=== PATIENT | female | born 1990 | race Caucasian/White ===

== ENCOUNTER 2022-01-11 23:30 | Emergency (ER) | payer MEDICAID ==
[~2022-01-11] VITALS: Ht 165.1 cm; Wt 104.5 kg
[2022-01-12 02:22] LABS: URINE HCG NEGATIVE (NEG)
[2022-01-12 02:25] LABS: CLARITY,URINE CLEAR (Clear); COLOR,URINE YELLOW (Yellow); GLUCOSE, URINE NEGATIVE (Neg); KETONES,URINE 15 mg/dl (Neg); LEUKOCYTE ESTERASE ,URINE NEGATIVE (Neg); NITRITES, URINE NEGATIVE (Neg); OCCULT BLOOD,URINE SMALL (Neg); PH,URINE 5.5 (4.8-8.0); PROTEIN,URINE NEGATIVE (Neg); UROBILINOGEN,URINE 0.2 E.U/dL (0.2-1.0)
[2022-01-12 02:28] LABS: UA COLLECTION TYPE CLN CATCH MIDSTREAM
[2022-01-12 02:32] LABS: BACTERIA,URINE FEW /HPF (Neg); RBC,URINE 0-2 /HPF (0-2); SQUAMOUS EPITHELIAL CELL,UR MODERATE /LPF (FEW); WBC,URINE 0-4 /HPF (0-4)
[2022-01-12] MEDS ORDERED: ketorolac trometh inj. 60 MG/2 ML VIAL IM ONE (03:35)
[2022-01-12] MEDS ORDERED: diazepam 5mg tablet PO ONE (03:35)
--- NOTE | 2022-01-12 04:08 | NUR ---
PT GIVEN PAIN MEDS FOR 9/10 PAIN. PT NOW ASLEEP.
--- NOTE | 2022-01-12 06:13 | NUR ---
TRIED TO AMBULATE PT BUT PT REFUSED. WILL FOLLOW UP. AWARE
[2022-01-12 08:02] LABS: BASOPHILS % (AUTO) 0.6 % (0-1); EOSINOPHILS # (AUTO) 0.2 X10'3 (0-0.9); EOSINOPHILS % (AUTO) 2.8 % (0-6); HEMATOCRIT 39.4 % (35.0-45.0); HEMOGLOBIN 13.1 g/dl (12.0-16.0); LYMPHOCYTES # (AUTO) 3.2 X10'3 (1.1-4.8); MEAN CORPUSCULAR HEMOGLOBIN 28.7 PG (27.0-31.0); MEAN CORPUSCULAR HGB CONC 33.2 g/dL (33.0-36.5); MEAN CORPUSCULAR VOLUME 86.6 FL (78-98); MEAN PLATELET VOLUME 8.3 FL (7.4-10.4); MONOCYTES # (AUTO) 0.5 X10'3 (0-0.9); NEUTROPHILS # (AUTO) 3.8 X10'3 (1.8-7.7); NEUTROPHILS % (AUTO) 48.6 % (42-75); PLATELET COUNT 333 X10'3 (140-440); RED BLOOD COUNT 4.55 X10'6 (4.20-5.60); RED CELL DISTRIBUTION WIDTH 13.3 % (11.5-14.5); WHITE BLOOD COUNT 7.7 X10'3 (4.5-11.0)
[2022-01-12 08:12] LABS: APTT 30 SECONDS (22-32)
[2022-01-12 08:16] LABS: ALANINE AMINOTRANSFERASE 23 U/L (12-78); ALBUMIN 3.3 G/DL (3.4-5.0); ALBUMIN/GLOBULIN RATIO 0.9 (1.1-1.5); ALKALINE PHOSPHATASE 87 IU/L (46-116); ANION GAP 5 (8-16); ASPARTATE AMINO TRANSFERASE 22 U/L (10-37); BILIRUBIN,TOTAL 0.4 MG/DL (0.1-1.0); BLOOD UREA NITROGEN 8 MG/DL (7-18); BUN/CREATININE RATIO 10.5 (6.6-38.0); CALCIUM 8.5 MG/DL (8.5-10.1); CHLORIDE 107 MMOL/L (99-107); CREATININE 0.76 MG/DL (0.40-0.90); GLUCOSE 93 MG/DL (70-104); SODIUM 138 MMOL/L (135-145); TOTAL CARBON DIOXIDE 25.6 MMOL/L (24-32); TOTAL PROTEIN 6.8 G/DL (6.4-8.2); eGFR 88 ML/MIN
--- NOTE | 2022-01-12 11:43 | NUR ---
pt still in mri.
--- NOTE | 2022-01-12 12:02 | NUR ---
patient back from [facility]ri ,painful to change position ,pt refused the pain meds stated "i want to know what's wrong with me".
[2022-01-12] MEDS ORDERED: orphenadrine citrate 60mg/2ml inj. IM ONE (13:30)
[2022-01-12] MEDS ORDERED: HYDROcodone/acetaminophen 10/325mg tab PO ONE (13:30)
[2022-01-12] MEDS ORDERED: ORPH100T2 PO (14:05)
[2022-01-12] MEDS ORDERED: HYDR-3972 PO (14:05)
[2022-01-12 14:32] VITALS: BP 118/73
== END 2022-01-12 14:36 | disposition home or self-care (01) ==
LOC: ER 23:31
DX: M54.50 Low back pain, unspecified (principal); K46.9 Unspecified abdominal hernia without obstruction or gangrene; G89.29 Other chronic pain; Z98.890 Other specified postprocedural states; Z79.899 Other long term (current) drug therapy
CPT/HCPCS: 36415; 72146; 72148; 80053; 81001; 81025; 85025; 85610; 85730; 96372; 99285; J1885; J2360

== ENCOUNTER 2022-03-01 17:58 | Emergency (ER) | payer MEDICAID ==
[~2022-03-01] VITALS: Ht 165.1 cm; Wt 111.4 kg
[~2022-03-01 17:58] MED LIST: ORPH100T2 PO
[2022-03-01 19:10] LABS: BASOPHILS # (AUTO) 0.1 X10'3 (0-0.2); BASOPHILS % (AUTO) 0.9 % (0-1); EOSINOPHILS # (AUTO) 0.1 X10'3 (0-0.9); EOSINOPHILS % (AUTO) 1.7 % (0-6); HEMOGLOBIN 13.5 g/dl (12.0-16.0); LYMPHOCYTES # (AUTO) 2.6 X10'3 (1.1-4.8); LYMPHOCYTES % (AUTO) 35.4 % (21-51); MEAN CORPUSCULAR HEMOGLOBIN 29.2 PG (27.0-31.0); MEAN CORPUSCULAR HGB CONC 33.7 g/dL (33.0-36.5); MEAN CORPUSCULAR VOLUME 86.6 FL (78-98); MEAN PLATELET VOLUME 8.4 FL (7.4-10.4); MONOCYTES # (AUTO) 0.4 X10'3 (0-0.9); MONOCYTES % (AUTO) 5.5 % (2-12); NEUTROPHILS # (AUTO) 4.1 X10'3 (1.8-7.7); NEUTROPHILS % (AUTO) 56.5 % (42-75); PLATELET COUNT 376 X10'3 (140-440); RED BLOOD COUNT 4.62 X10'6 (4.20-5.60); RED CELL DISTRIBUTION WIDTH 13.7 % (11.5-14.5); WHITE BLOOD COUNT 7.3 X10'3 (4.5-11.0)
[2022-03-01 19:26] LABS: ALANINE AMINOTRANSFERASE 23 U/L (12-78); ALBUMIN 3.5 G/DL (3.4-5.0); ALBUMIN/GLOBULIN RATIO 0.8 (1.1-1.5); ALKALINE PHOSPHATASE 106 IU/L (46-116); ANION GAP 7 (8-16); ASPARTATE AMINO TRANSFERASE 14 U/L (10-37); BILIRUBIN,TOTAL 0.2 MG/DL (0.1-1.0); BLOOD UREA NITROGEN 14 MG/DL (7-18); BUN/CREATININE RATIO 18.2 (6.6-38.0); CALCIUM 8.8 MG/DL (8.5-10.1); CHLORIDE 105 MMOL/L (99-107); CREATININE 0.77 MG/DL (0.40-0.90); GLUCOSE 101 MG/DL (70-104); POTASSIUM 3.9 MMOL/L (3.5-5.1); SODIUM 138 MMOL/L (135-145); TOTAL CARBON DIOXIDE 26.2 MMOL/L (24-32); TOTAL PROTEIN 7.8 G/DL (6.4-8.2); eGFR 86 ML/MIN
[2022-03-01] MEDS ORDERED: ibuprofen tablet 400 MG TABLET PO ONE (21:45)
[2022-03-01 22:33] VITALS: BP 135/93
== END 2022-03-01 22:35 | disposition home or self-care (01) ==
LOC: ER 17:59
DX: R07.89 Other chest pain (principal); R12 Heartburn; G89.29 Other chronic pain; M54.9 Dorsalgia, unspecified; Z98.890 Other specified postprocedural states
CPT/HCPCS: 36415; 71045; 80053; 83880; 84484; 85025; 93005; 99285